=== PATIENT | male | born 1940 | race Caucasian/White ===

== ENCOUNTER 2016-10-14 08:05 | Outpatient (CLI) | payer MEDICARE, BC ==
[~2016-10-14] VITALS: Ht 177.8 cm; Wt 92.2 kg
--- NOTE | ~2016-10-14 | CATH ---
Cardiac Diagnostic + PCI Report Demographics Patient Name NICOLASA Carroll Gender Male Date of 1940 Age 76 year(s) Patient Number [id number] Date of Study 10/14/2016 Visit Number [id number] Room Number G[address] [place] [id number] Ht 177.8 cm Wt 92.2 kg Referring Charis Degroot Primary Physician Physician Performing [facility] Secondary Physician Physician Moira PETERS Diagnostic [facility] Assisting Physician Physician Moira PETERS Interventional [facility] Physician Silk Screen Processor Physician Moira PETERS Findings and Conclusions Diagnostic Findings and Conclusion 2 vessel CAD. Unstable angina. RCA stent patent. Mid Cx hazy 80% lesion into OM1 branch. Diagnostic Recommendations Unstable angina. PCI of mid Cx into OM. Interventional Findings and Conclusion S/P PCI mid Cx with ROBERT 3.0 X 16mm at 12 nayeli. Interventional Recommendations DAPT x 1 year. Continue regular medications. Patient will be observed overnight. Continue current medications. Hydration and followup creatinine. Patient has been instructed to not lift anything more than 5 pounds for 1 week. I will plan on seeing the patient back in 2 week(s). Optimize LV systolic function. Aggressive risk factor management. Aggressive medical therapy for coronary artery disease. Optimization of medical therapy as an outpatient. Referral to Cardiac Rehabilitation now and at discharge . I would like to thank Dr. Hernandez for the opportunity to participate in the care of Mr. Nj . Procedure Description The patient was brought to the diagnostic cardiac catheterization-EP laboratory in the fasting, non-sedated state. Informed consent was obtained in the written and verbal form after the risks and benefits were explained. The patient had no further questions and agreed to proceed. The planned puncture-incision site(s) were shaved and prepped with ChloraPrep and draped in the usual sterile manner. Conscious sedation, supplemental oxygen, and pain control medications were delivered by a registered nurse under physician guidance. Surface ECG rhythm, blood pressure measurement, and pulse oximetry were monitored throughout the procedure. Arterial access. The access site was infiltrated with lidocaine. The vessel was entered with the Seldinger technique. A sheath was advanced into the vessel and used for catheter placement. Selective left coronary angiography. A catheter was advanced into the left coronary vessel ostium under Fluoroscopic guidance. Contrast was injected by hand. Images were obtained in multiple projections. Selective right coronary angiography. A catheter was advanced into the right coronary vessel ostium under fluoroscopic guidance. Contrast was injected by hand. Images were obtained in multiple projections. Angioplasty and Stent Placement: A guiding catheter was used to intubate the vessel. A 0.14 wire was then used to cross the lesion. A balloon catheter was placed across the lesion and inflated. The balloon catheter was then removed. A Drug Eluting Stent was placed and inflated. Post placement angiograms were performed. Arterial artery hemostasis was achieved. The patient was transferred to a regular nursing floor via cart accompanied by a nurse. The patient left the laboratory in stable condition. Diagnostic Cath Status: Elective Interventional Cath Status: Urgent Procedure Procedure Type Diagnostic procedure:Angiography:, Coronary Angios PCI procedure:Drug Eluting Coronary Stent:, CFX Indications: Chest pain and CAD. The procedure was explained in detail to the patient. Risks, complications and alternative treatments were reviewed. Written consent was obtained. Medications Reviewed with Patient prior to Procedure. Angiographic Findings Dominance: Right Cardiac Arteries and Lesion Findings LMCA: Normal (0% Stenosis). LAD: Lesion on Prox LAD: Proximal subsection.20% stenosis . Comments:calcified proximal 20%. Mid positive for bridging. LCx: Lesion on Mid CX: Mid subsection.80% stenosis 16 mm length reduced to 0%. Pre procedure STEVE III flow was noted. Post Procedure STEVE III flow was present. The guidewire cross was successful.The lesion was diagnosed as a moderate risk lesion.Culprit lesion. Treatment results:Interventional treatment was successful. Devices used - Runthrough NS .014 x 180. Number of passes: 1. - Emerge Balloon 2.75 x 15. 1 inflation(s) to a max pressure of: 8 nayeli. - Promus Premier 3.0 x 16 Stent. 2 inflation(s) to a max pressure of: 12 nayeli. Lesion on Prox CX: Ostial.30% stenosis . Lesion on 1st Ob Lesa: Ostial.70% stenosis . RCA: PL and PDA normal.There is a previous stent on Mid RCA Mid subsection showing wide patency. Ramus: Normal (0% Stenosis). Coronary Tree Procedure Data Procedure Date Date: 10/14/2016Start: 10:30 AMEnd: 11:21 AM Entry Locations - Retrograde Percutaneous access was performed through the Right Radial artery (Primary location). A 6 Fr sheath was inserted. Hemostasis was successfully obtained using Mechanical Compression. Closure Comments: 13 ml's in the radial band placed by Sami Doll. Procedure Medications Order and Administration + + + + + !Time !Medication !Dosage !Route ! + + + + + !10/14/2016 10:27 !Versed !1 mg !I.V. ! !AM ! ! ! ! + + + + + 10/14/2016 10:27 !Fentanyl !50 mcg !I.V. ! !AM ! ! ! ! + + + + + !10/14/2016 10:31 !Oxygen !2 l/min !NC ! !AM ! ! ! ! + + + + + !10/14/2016 10:32 !Radial Verapamil !2.5 mg !I.A. ! !AM ! ! ! ! + + + + + !10/14/2016 10:38 !Heparin (ACC_3) !5000 units !I.V. ! !AM ! ! ! ! + + + + + !10/14/2016 10:54 !Angiomax (Bivalirudin) !67.5 mg !I.V. bolus ! !AM !(ACC_5) ! ! ! + + + + + 10/14/2016 10:55 !Angiomax (Bivalirudin) !1.75 mg/kg/hr!I.V. drip ! !AM !(ACC_5) ! ! ! + + + + + 10/14/2016 10:55 !Fentanyl !50 mcg !I.V. ! !AM ! ! ! ! + + + + + !10/14/2016 11:07 !Fentanyl !50 mcg !I.V. ! !AM ! ! ! ! + + + + + !10/14/2016 11:19 !Oxygen ! !NC ! !AM ! ! ! ! + + + + + !10/14/2016 11:19 !Brilinta (Ticagrelor) !180 mg !P.O. ! !AM !(ACC_20) ! ! ! + + + + + Devices Used - A5 Fr. BS JR 4 Diag. Catheterwas used for:Right coronary angiography. - A5 Fr. BS JL 3.5 Diag. Catheterwas used for:Left coronary angiography. - A6 Fr. EBU 3.5 Guide Catheterwas used for:Circumflex Intervention. - A6 Fr. Guidlinerwas used for:Circumflex Intervention. Contrast Material - Isovue 149103 ml Fluoroscopy Time: Diagnostic: 11:00 minutes. Total: 11:00 minutes. Fluoroscopy Dose: Diagnostic: 1776 mGy. Total: 1776 mGy. Estimated Blood Loss: 15 ml. Additional [facility] PCI Information PCI Indication:PCI for high risk Non-STEMI or unstable angina. Medical History Performed Procedures and Imaging Results - No ACC stress or imaging studies were performed. History of Disease + + + + !Diagnosis !Date !Comments ! + + + + !CAD ! ! ! + + + + Allergies - No known allergies. Risk Factors The patient risk factors include:prior PCI on 03/05/2012;cerebrovascular disease, treated hypercholesterolemia, last creatinine: 1 mg/dl, creatinine clearance: 81.96 ml/min, dyslipidemia and prior CT . Admission Data Admission Date: 10/14/2016 Admission Time: 08:05 AM Admit Source: Other Insurance Payors: Medicare. Admission Medications + +------+------+ + + + + !Medication !Dosage!Times !Last !Last !Administered !Comments ! ! ! !Per !Delivery !Delivery ! ! ! ! ! !Day !Date !Time ! ! ! + +------+------+ + + + + !Statin ! ! !10/13/2016 !12:00 AM !Yes ! ! !(any) ! ! ! ! ! ! ! + +------+------+ + + + + !Beta ! ! !10/14/2016 !12:00 AM !Yes ! ! !Mala ! ! ! ! ! ! ! !(any) ! ! ! ! ! ! ! + +------+------+ + + + + !Aspirin ! ! !10/14/2016 !12:00 AM !Yes ! ! !(any) ! ! ! ! ! ! ! + +------+------+ + + + + Clinical Evaluation Leading to Procedure - The patient's CAD presentation was assessed as: Unstable angina. 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 Anti-anginal medications were prescribed during the past two weeks. The medications are: Beta Blockers and Ranolazine. - The patient has been in a state of heart failure within the past two weeks. - The patient's heart failure status was assessed as NYHA Class II. Hemodynamics Condition: Rest O2 Consumption: Estimated: 237.02Heart Rate: 65 bpm Pressures (mmHg) +-----+ + !Site !Pressure ! +-----+ + !AO !112/56 (82) ! +-----+ + Shunts Oxygen Values O2 Capacity 189.04 O2 Consumption 237.02 Signatures dtt: MOIRA DOUGLASS dtd: 10/14/16 1030 Physician Self Edit
[~2016-10-14 08:05] MED LIST: ADVIL200 MG PO; ASPIRIN EC81 MG PO; LIPITOR40 MG PO; NITROSTAT0.4 MG SL; TOPROL XL25 MG PO
[2016-10-14 09:06] LABS: BASOPHIL % 0.4 %; EOSINOPHIL # 0.2 K/uL (0.0-0.5); EOSINOPHIL % 2.8 %; HEMATOCRIT 40.1 % (37.0-53.0); HEMOGLOBIN 13.9 g/dL (11.0-16.0); IMMATURE GRANULOCYTE % 0.1 %; LYMPHOCYTE # 1.4 K/uL (0.8-4.0); LYMPHOCYTE % 17.9 %; MCH 31.8 pg (27.0-34.0); MCHC 34.7 gm/dL (32.0-36.5); MCV 91.8 fl (83.0-98.0); MONOCYTE # 0.6 K/uL (0.0-1.0); MONOCYTE % 7.4 %; MPV 10.2 fl (9.4-12.4); NEUTROPHIL # (ANC) 5.4 K/uL (1.4-9.0); NEUTROPHIL % 71.4 %; NRBC % 0 /100WBC (0-0.00); PLATELET COUNT 168 K/uL (150-450); RBC 4.37 M/uL (3.50-5.50); RDW-CV 12.1 % (11.9-14.6); WBC 7.5 K/uL (4.0-11.0)
[2016-10-14 09:14] LABS: INR - (THERAPEUTIC) 1.06 (0.92-1.07); PROTIME 11.1 SECONDS (9.8-11.4)
[2016-10-14 09:21] LABS: ALBUMIN 3.8 gm/dL (3.5-5.0); ANION GAP 8.3 (10.0-19.0); CALCIUM 8.6 mg/dL (8.5-10.5); POTASSIUM 4.3 mMol/L (3.7-5.1); TOTAL PROTEIN 6.1 g/dL (6.0-8.4)
[2016-10-14 12:38] LABS: CPK 87 IU/L (35-332)
--- NOTE | 2016-10-14 16:15 | NUR ---
Significant Event: Alert and oriented X 3. Room air. VSS. Heart cath w/right radial approach. Radial compression band off, bandaid and coban applied. No drainage, no bruising. Up with SBA. Has ambulated 3X around the halls. Peripheral IV to left forearm saline locked. Pleasant and cooperative with cares. Follow up:Possible dismissal home tomorrow.
[2016-10-14 18:42] LABS: CPK 78 IU/L (35-332)
[2016-10-14 23:59] LABS: CPK 70 IU/L (35-332)
--- NOTE | 2016-10-15 05:08 | NUR ---
Significant Event: A/O x3. Afebrile. Denies pain. VSS on RA. HR 50-60s. SBP 108-160. Rt radial site w/ coban and bandaid, +2 pulse present. Up ad rola. Cooperative with cares. Follow up: Will be d/c'd today.
[2016-10-15 06:18] LABS: CPK 62 IU/L (35-332)
[2016-10-15 06:22] LABS: ALBUMIN 3.5 gm/dL (3.5-5.0); ANION GAP 9.1 (10.0-19.0); CALCIUM 8.5 mg/dL (8.5-10.5); CREATININE 0.9 mg/dL (0.6-1.3); POTASSIUM 4.1 mMol/L (3.7-5.1); TOTAL PROTEIN 5.9 g/dL (6.0-8.4)
[2016-10-15 12:31] LABS: CPK 67 IU/L (35-332)
[2016-10-15] MEDS ORDERED: BRILINTA90 MG PO (14:07)
== END 2016-10-15 14:55 | disposition disaster alternative care site (69) ==
LOC: GPCU 08:05 → GCAT 08:05 → GPCU 11:00 → GCAT 10-15 14:55
PROVIDERS: Internal Medicine Interventional Cardiology
PROC: 4A023N8 Measurement of Cardiac Sampling and Pressure, Bilateral, Percutaneous Approach (ICD-10-PCS; principal; 2016-10-14)
PROC: B216YZZ Fluoroscopy of Right and Left Heart using Other Contrast (ICD-10-PCS; 2016-10-14)
DX: I25.110 Atherosclerotic heart disease of native coronary artery with unstable angina pectoris (principal); R00.1 Bradycardia, unspecified
CPT/HCPCS: C1725; C1769; C1874; C1887; C9600; J0583; J1644; J2001; J2250; J3010; J7030; J7060